=== PATIENT | female | born 1985 | race Caucasian/White ===

== ENCOUNTER 2017-04-10 06:35 | Emergency (ER) | payer OTHER ==
[~2017-04-10] VITALS: Ht 160 cm; Wt 136.4 kg
[2017-04-10] MEDS ORDERED: EXCETAB81 PO (06:45)
[2017-04-10] MEDS ORDERED: IBUP-1022 PO (06:45)
[2017-04-10] MEDS ORDERED: NAPR250T4 PO (06:45)
[2017-04-10] MEDS ORDERED: PHENYLEPHRINE 0.25% NASAL SPR 15 ML As Ordered ONE (07:05)
[2017-04-10] MEDS ORDERED: cloNIDine 0.2 MG TAB PO ONE (07:45)
[2017-04-10 09:42] LABS: ANION GAP 8 MEQ/L (8-16); BLOOD UREA NITROGEN 13 MG/DL (7-18); CALCIUM LEVEL 9.3 MG/DL (8.5-10.1); CARBON DIOXIDE LEVEL 25 MEQ/L (21-32); CHLORIDE LEVEL 101 MEQ/L (98-107); CREATININE FOR GFR 0.71 MG/DL (0.55-1.02); GLOMERULAR FILTRATION RATE > 60.0 (>60); GLUCOSE, FASTING 109 MG/DL (70-105); POTASSIUM SERUM 3.8 MEQ/L (3.5-5.1); SODIUM LEVEL 134 MEQ/L (136-145)
[2017-04-10] MEDS ORDERED: CHLORTHALIDONE 12.5MG PER 1/2 TABLET PO ONE (10:00)
[2017-04-10] MEDS ORDERED: CHLO125TA PO (12:54)
[2017-04-10] MEDS ORDERED: AUGM875T28 PO (13:18)
[2017-04-10 16:53] VITALS: BP 140/90
--- NOTE | 2017-04-11 08:04 | ECGEPIP ---
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
== END 2017-04-10 16:55 | disposition home or self-care (01) ==
LOC: M ED 06:35
DX: R04.0 Epistaxis (principal); I10 Essential (primary) hypertension

== ENCOUNTER → 2021-07-16 | Outpatient (CLI) | payer OTHER ==
[~2021-07-16] MED LIST: AUGM875T28 PO; CHLO125TA PO; EXCETAB81 PO; IBUP-1022 PO; NAPR-849 PO
--- NOTE | 2021-07-19 11:13 | HOLTMON ---
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 Very rare premature isolated PACs including one pair. No supraventricular run. Moderate prematue isolated PVCs and some were in bigeminy, trigeminy. No ventricular run. No pause. There were no symptoms reported. Electronically Signed on 07-19-2021 11:13:10 EDT by Jossue Solomon
== END ==
LOC: M EKG 08:26
PROVIDERS: ATTEND Registered Nurse
DX: R00.2 Palpitations (principal)

== ENCOUNTER → 2021-10-16 | Outpatient (CLI) | payer OTHER | LOC: M RAD 11:25 | PROVIDERS: ATTEND Obstetrics & Gynecology | DX: N92.1 Excessive and frequent menstruation with irregular cycle (principal) ==

== ENCOUNTER → 2022-01-29 | Outpatient (CLI) | payer OTHER | LOC: M SLEEP HO 01-11 10:24 | PROVIDERS: ATTEND Internal Medicine Cardiovascular Disease | DX: R06.83 Snoring (principal) ==

== ENCOUNTER 2023-07-22 16:34 | Emergency (ER) | payer OTHER ==
[~2023-07-22] VITALS: Ht 157.5 cm; Wt 142.3 kg
[2023-07-22] MEDS ORDERED: COLA100C5 PO (16:52)
[2023-07-22] MEDS ORDERED: METO100T5 (16:52)
[2023-07-22] MEDS ORDERED: FERR325T3 PO (16:52)
[2023-07-22] MEDS ORDERED: HEAT0.35 (16:52)
[2023-07-22 17:57] LABS: RSV AMPLIFICATION NEGATIVE (NEGATIVE)
[2023-07-22 20:02] LABS: BASO # 0.1 10^3/uL (0.0-0.2); BASO % 0.5 % (0.0-1.0); EOS # 0.1 10^3/uL (0.0-0.5); HEMATOCRIT 43.1 % (36.0-47.0); HEMOGLOBIN 14.2 g/dl (12.0-15.5); LYMPH # 2.4 10^3/uL (1.5-5.0); MEAN CORPUSCULAR HEMOGLOBIN 27.7 pg (27.0-33.0); MEAN CORPUSCULAR HGB CONC 32.9 g/dl (32.0-36.5); MONO # 0.4 10^3/uL (0.0-0.8); MONO % 4.2 % (2.0-8.0); NEUTROPHILS # 6.3 10^3/uL (1.5-8.5); NEUTROPHILS % 68.1 % (36.0-66.0); PLATELET COUNT, AUTOMATED 290 10^3/uL (150-450); RED BLOOD COUNT 5.13 10^6/uL (4.00-5.40); WHITE BLOOD COUNT 9.2 10^3/uL (4.0-10.0)
[2023-07-22 20:14] LABS: INR 1.05; PROTHROMBIN TIME 13.4 SECONDS (12.5-14.5)
[2023-07-22 20:17] LABS: D-DIMER QUANT < 0.27 ug/mL (<0.5)
[2023-07-22 20:32] LABS: BLOOD UREA NITROGEN 17 MG/DL (9-23); CALCIUM LEVEL 9.2 MG/DL (8.5-10.1); CARBON DIOXIDE LEVEL 23 MMOL/L (20-31); CHLORIDE LEVEL 105 MMOL/L (98-107); CREATININE FOR GFR 0.72 MG/DL (0.55-1.30); GLOMERULAR FILTRATION RATE > 60.0 (>60); GLUCOSE, FASTING 99 MG/DL (60-100); POTASSIUM SERUM 4.1 MMOL/L (3.5-5.1); SODIUM LEVEL 140 MMOL/L (136-145)
[2023-07-22 21:02] VITALS: BP 157/86; TEMP 97.6; O2SAT 99
== END 2023-07-22 21:04 | disposition home or self-care (01) ==
LOC: M ED 16:34
DX: R07.89 Other chest pain (principal); I10 Essential (primary) hypertension; Z79.899 Other long term (current) drug therapy

== ENCOUNTER → 2024-06-14 | Outpatient (REF) | payer OTHER ==
[~2024-06-14] MED LIST changes: +COLA100C5 PO; +FERR325T3 PO; +HEAT0.35; +METO100T5
[2024-06-14 18:28] LABS: ALBUMIN 3.7 G/DL (3.2-5.2); ALKALINE PHOSPHATASE 97 U/L (46-116); ALT/SGPT 44 U/L (7.0-40); AST/SGOT 27 U/L (<34); BILIRUBIN,TOTAL 0.4 MG/DL (0.3-1.2); BLOOD UREA NITROGEN 15 MG/DL (9-23); CALCIUM LEVEL 9.5 MG/DL (8.5-10.1); CARBON DIOXIDE LEVEL 24 MMOL/L (20-31); CHLORIDE LEVEL 105 MMOL/L (98-107); CHOLESTEROL LEVEL 236 MG/DL (<200); CHOLESTEROL RISK RATIO 6.44 (<5); CREATININE FOR GFR 0.72 MG/DL (0.55-1.30); GLOMERULAR FILTRATION RATE > 60.0 (>60); GLUCOSE, FASTING 91 MG/DL (60-100); HDL CHOLESTEROL 36.6 MG/DL (>40); LDL CHOLESTEROL 146.8 MG/DL (<100); NON-HDL-C 199.4 MG/DL; POTASSIUM SERUM 4.1 MMOL/L (3.5-5.1); SODIUM LEVEL 138 MMOL/L (136-145); TOTAL PROTEIN 7.3 G/DL (5.7-8.2); TRIGLYCERIDES LEVEL 263 MG/DL (<150)
== END ==
LOC: M SFHCLERA 10:15
PROVIDERS: ATTEND Family Medicine
DX: I10 Essential (primary) hypertension (principal); E66.01 Morbid (severe) obesity due to excess calories

== ENCOUNTER → 2025-03-21 | Outpatient (REF) | payer OTHER ==
[2025-03-21 18:15] LABS: ALT/SGPT 59 U/L (7.0-40); AST/SGOT 45 U/L (<34); CALCIUM LEVEL 9.1 MG/DL (8.5-10.1); CARBON DIOXIDE LEVEL 24 MMOL/L (20-31); CHLORIDE LEVEL 101 MMOL/L (98-107); CHOLESTEROL LEVEL 203 MG/DL (<200); CHOLESTEROL RISK RATIO 4.90 (<5); CREATININE FOR GFR 0.72 MG/DL (0.55-1.30); GLOMERULAR FILTRATION RATE > 90.0 (>60); LDL CHOLESTEROL 102.2 MG/DL (<100); MAGNESIUM LEVEL 1.8 MG/DL (1.8-2.4); NON-HDL-C 161.6 MG/DL; POTASSIUM SERUM 3.2 MMOL/L (3.5-5.1); SODIUM LEVEL 141 MMOL/L (136-145); TRIGLYCERIDES LEVEL 297 MG/DL (<150)
[2025-03-21 18:16] LABS: IRON (FE) 53 UG/DL (50-170); PERCENT SATURATION 17.3 % (13.2-45.0)
[2025-03-21 18:20] LABS: BASO # 0.1 10^3/uL (0.0-0.2); BASO % 0.8 % (0.0-1.0); EOS # 0.1 10^3/uL (0.0-0.5); EOS % 1.5 % (0.0-3.0); LYMPH # 2.7 10^3/uL (1.5-5.0); LYMPH % 35.0 % (24.0-44.0); MONO # 0.5 10^3/uL (0.0-0.8); MONO % 6.3 % (2.0-8.0); NEUTROPHILS # 4.4 10^3/uL (1.5-8.5); NEUTROPHILS % 56.3 % (36.0-66.0); PLATELET COUNT, AUTOMATED 264 10^3/uL (150-450)
== END ==
LOC: M SFHCLERA 08:06
PROVIDERS: ATTEND Family Medicine
DX: Z00.00 Encounter for general adult medical examination without abnormal findings (principal); D50.9 Iron deficiency anemia, unspecified; E78.5 Hyperlipidemia, unspecified; R25.2 Cramp and spasm

== ENCOUNTER → 2025-03-26 | Outpatient (REF) | payer OTHER ==
[2025-03-26 18:19] LABS: CALCIUM LEVEL 9.2 MG/DL (8.5-10.1); CARBON DIOXIDE LEVEL 27 MMOL/L (20-31); CHLORIDE LEVEL 102 MMOL/L (98-107); CREATININE FOR GFR 0.70 MG/DL (0.55-1.30); GLOMERULAR FILTRATION RATE > 90.0 (>60); MAGNESIUM LEVEL 1.9 MG/DL (1.8-2.4); POTASSIUM SERUM 3.5 MMOL/L (3.5-5.1); SODIUM LEVEL 137 MMOL/L (136-145)
== END ==
LOC: M SFHCLERA 11:32
PROVIDERS: ATTEND Family Medicine
DX: E87.6 Hypokalemia (principal)

== ENCOUNTER → 2025-06-11 | Outpatient (REF) | payer OTHER ==
[~2025-06-11] MED LIST changes: -IBUP-1022 PO; +IBUP600T42 PO
[2025-06-11 20:16] LABS: CALCIUM LEVEL 9.0 MG/DL (8.5-10.1); CARBON DIOXIDE LEVEL 27 MMOL/L (20-31); CHLORIDE LEVEL 103 MMOL/L (98-107); CREATININE FOR GFR 0.80 MG/DL (0.55-1.30); GLOMERULAR FILTRATION RATE > 90.0 (>60); POTASSIUM SERUM 4.1 MMOL/L (3.5-5.1); SODIUM LEVEL 140 MMOL/L (136-145)
== END ==
LOC: M SFHCLERA 08:25
PROVIDERS: ATTEND Family Medicine
DX: E87.6 Hypokalemia (principal); I10 Essential (primary) hypertension